=== PATIENT | female | born 1960 | race Caucasian/White ===

== ENCOUNTER 2021-07-06 13:20 | Outpatient (CLI) | payer BC | END 2021-07-06 23:59 | disposition critical access hospital (66) | LOC: EMS 13:20 | DX: R55 Syncope and collapse (principal); R41.0 Disorientation, unspecified; R45.1 Restlessness and agitation | CPT/HCPCS: A0425; A0427 ==

== ENCOUNTER 2021-07-06 14:09 | Emergency (ER) | payer BC ==
--- NOTE | 2021-07-06 14:04 | ED Physician Documentation ---
PD HPI SYNCOPE - Stated complaint Stated Complaint: SYNCOPE/CONFUSED - Chief complaint Chief Complaint: Neuro - History obtained from History obtained from: Patient - Additional information Additional information: 61-year-old woman presents by ambulance for the evaluation of syncope. She was in her usual state of health and passed out in the kitchen. No clear injury. She did not feel dizzy or presyncopal before it happened. She has right-sided anterior pleuritic chest pain that she noted on the ambulance on the way here. No shortness of breath, calf pain or pedal edema. No head injury. She returned from [place] by flight 2 days ago. No history of heart or lung problems except for asthma. Of note she has felt clumsy lately and has hit her head a couple of times and falls. Nothing she thought was serious. Review of Systems Constitutional: denies: Fever, Chills Eyes: reports: Reviewed and negative Ears: reports: Reviewed and negative Nose: reports: Reviewed and negative Cardiac: reports: Chest pain / pressure. denies: Palpitations Respiratory: denies: Dyspnea, Cough PD PAST MEDICAL HISTORY - Present Medications Home Medications: Ambulatory Orders Medication Instructions Recorded Confirmed Sertraline [Zoloft] 25 mg PO DAILY 07/06/21 07/06/21 lamoTRIgine [LaMICtal] 25 mg PO DAILY 07/06/21 07/06/21 - Allergies Allergies/Adverse Reactions: Allergies Allergy/AdvReac Type Severity Reaction Status Date / Time acetaminophen [From Percocet] AdvReac Unknown Verified 07/06/21 14:02 oxycodone [From Percocet] AdvReac Unknown Verified 07/06/21 14:02 PD ED PE NORMAL - Vitals Vital signs reviewed: Yes - General General: Alert and oriented X 3, Other (Win[place] with deep breathing, she points to the right anterior chest as the site of pain.) - HEENT HEENT: PERRL, EOMI - Neck Neck: Supple, no meningeal sign, No bony TTP - Cardiac Cardiac: RRR, No murmur - Respiratory Respiratory: No respiratory distress, Clear bilaterally - Abdomen Abdomen: Normal bowel sounds, Soft, Non tender - Back Back: No CVA TTP, No spinal TTP - Derm Derm: Normal color, Warm and dry - Extremities Extremities: No edema, No calf tenderness / cord - Neuro Neuro: Alert and oriented X 3, Normal speech Results - Vitals Vitals: Vital Signs - 24 hr 07/06/21 07/06/21 07/06/21 13:59 14:38 15:20 Temperature 37 C Heart Rate 82 80 Heart Rate [ 81 Sitting] Heart Rate [ 89 Standing] Heart Rate [ 80 Supine] Respiratory 20 20 Rate Blood Pressure 150/100 H 132/90 H Blood Pressure 137/111 H [Sitting] Blood Pressure 139/100 H [Standing] Blood Pressure 135/98 H [Supine] O2 Saturation 98 99 07/06/21 07/06/21 07/06/21 15:33 16:16 17:16 Temperature 36.5 C Heart Rate 71 79 83 Heart Rate [ Sitting] Heart Rate [ Standing] Heart Rate [ Supine] Respiratory 16 14 16 Rate Blood Pressure 139/68 H 152/100 H 199/86 H Blood Pressure [Sitting] Blood Pressure [Standing] Blood Pressure [Supine] O2 Saturation 99 96 100 07/06/21 07/06/21 07/06/21 17:40 19:09 19:22 Temperature Heart Rate 80 60 60 Heart Rate [ Sitting] Heart Rate [ Standing] Heart Rate [ Supine] Respiratory 16 18 Rate Blood Pressure 119/80 Blood Pressure [Sitting] Blood Pressure [Standing] Blood Pressure [Supine] O2 Saturation 95 94 96 07/06/21 07/06/21 07/06/21 20:11 20:44 21:12 Temperature Heart Rate 62 60 62 Heart Rate [ Sitting] Heart Rate [ Standing] Heart Rate [ Supine] Respiratory 18 14 Rate Blood Pressure 119/80 120/79 Blood Pressure [Sitting] Blood Pressure [Standing] Blood Pressure [Supine] O2 Saturation 97 98 97 Oxygen O2 Source Room air - EKG (time done) 1411 Rate: Rate (enter#) (81) Rhythm: NSR, LAE [place]: LAD Intervals: Normal [place] QRS: Normal Ischemia: Normal ST segments Computer interpretation: Agree with computer 1616 Rate: Rate (enter#) (78) Rhythm: NSR, LAE [place]: LAD Intervals: Normal [place] QRS: Normal Ischemia: Normal ST segments Compare to prior EKG: Unchanged from prior EKG (No change from first EKG) Computer interpretation: Agree with computer - Labs Labs: Laboratory Tests 07/06/21 07/06/21 07/06/21 14:13 14:13 14:13 WBC 8.0 RBC 4.35 Hgb 14.4 Hct 43.0 MCV 98.9 MCH 33.1 H MCHC 33.5 RDW 12.6 Plt Count 294 MPV 8.6 Neut # (Auto) 6.3 Lymph # (Auto) 1.0 L [place] # (Auto) 0.4 Eos # (Auto) 0.1 Baso # (Auto) 0.0 Absolute Nucleated RBC 0.00 Nucleated RBC % 0.0 Sodium 138 Potassium 4.0 Chloride 102 Carbon Dioxide 24 Anion Gap 12.0 BUN 19 Creatinine 0.7 Estimated GFR (MDRD) 85 L Glucose 92 Calcium 9.6 Total Bilirubin 0.5 AST 22 ALT 19 Alkaline Phosphatase 74 Troponin I High Sens 81.7 H* Total Protein 7.2 Albumin 4.3 Globulin 2.9 Albumin/Globulin Ratio 1.5 SARS-CoV-2 (PCR) 07/06/21 07/06/21 07/06/21 15:53 17:43 19:07 WBC RBC Hgb Hct MCV MCH MCHC RDW Plt Count MPV Neut # (Auto) Lymph # (Auto) [place] # (Auto) Eos # (Auto) Baso # (Auto) Absolute Nucleated RBC Nucleated RBC % Sodium Potassium Chloride Carbon Dioxide Anion Gap BUN Creatinine Estimated GFR (MDRD) Glucose Calcium Total Bilirubin AST ALT Alkaline Phosphatase Troponin I High Sens 249.5 H* 369.8 H* Total Protein Albumin Globulin Albumin/Globulin Ratio SARS-CoV-2 (PCR) NOT DETECTED - Rads (name of study) CT angiography of the test demonstrates hiatal hernia without acute abnormality. No PE. Radiology: EMP read contemporaneously CT angiography of the head is unremarkable Radiology: EMP read contemporaneously PD MEDICAL DECISION MAKING - ED course ED course: 61-year-old woman presents with syncope. There was no premonition. No injury. When she awoke she had pleuritic right-sided chest pain and was brought in for evaluation. Nothing else in the history or physical to suggest PE except for recent travel but given the syncope she was felt to be at high risk CT angiography of the chest was done. This was negative and her EKG was nonischemic. Subsequently her initial troponin was about 80. This was repeated and over the course of just an hour and a half or so it had tripled to 249. She had more of a headache, and given the concerns for headache and subarachnoid hemorrhage versus head injury CT angiography of the head was done prior to the initiation of anticoagulation and this was also negative. Given the rapidly rising troponin associated with syncope and chest pain she will need cardiology evaluation. After discussion with the patient and her who is at the bedside, [facility] was initially called for potential transfer at 5:13 PM. S/O to Dr Roman at shift change pending call back from [facility] - Critical Care Time(min): 35 Time Includes: Direct patient care, Review records, Reassess patient, Document care, Coordinate care, Medical consult, Family consult for tx dec Data interpretation: Labs, Pulse ox Procedures excluded from critical care time: EKG Departure - Departure Disposition: 02 Transfer Acute Care Hosp Clinical Impression: NSTEMI (non-ST elevated myocardial infarction) Syncope Qualifiers: Syncope type: unspecified Qualified Code(s): R55 - Syncope and collapse Headache Qualifiers: Headache type: unspecified Headache chronicity pattern: acute headache Intractability: not intractable Qualified Code(s): R51.9 - Headache, unspecified Condition: Serious Discharge Date/Time: 07/06/21 21:14
[2021-07-06 14:18] LABS: BASOPHILS % (AUTO) 0.5 %; EOSINOPHILS # (AUTO) 0.1 10^3/uL (0.0-0.7); EOSINOPHILS % (AUTO) 1.5 %; HGB - HEMOGLOBIN 14.4 g/dL (12.0-16.0); LYMPHOCYTES % (AUTO) 12.4 %; MEAN CORPUSCULAR HEMOGLOBIN 33.1 pg (27.0-31.0); MEAN CORPUSCULAR HGB CONC 33.5 g/dL (32.0-36.0); MEAN CORPUSCULAR VOLUME 98.9 fL (81.0-99.0); MEAN PLATELET VOLUME 8.6 fL (7.9-10.8); MONOCYTES # (AUTO) 0.4 10^3/uL (0.0-1.0); MONOCYTES % (AUTO) 5.5 %; NEUTROPHILS # (AUTO) 6.3 10^3/uL (1.5-6.6); NEUTROPHILS % (AUTO) 79.3 %; PLT - PLATELET COUNT 294 10^3/uL (130-450); RED BLOOD COUNT 4.35 10^6/uL (4.20-5.40); RED CELL DISTRIBUTION WIDTH 12.6 % (12.0-15.0)
[2021-07-06 14:34] LABS: ALBUMIN 4.3 g/dL (3.2-5.5); ALBUMIN/GLOBULIN RATIO 1.5 (1.0-2.2); BILIRUBIN,TOTAL 0.5 mg/dL (0.2-1.0); CALCIUM 9.6 mg/dL (8.5-10.3); CREATININE 0.7 mg/dL (0.4-1.0); TOTAL PROTEIN 7.2 g/dL (6.7-8.2)
[2021-07-06] MEDS ORDERED: IOPAMIDOL-300 100 ML VIAL ONE ×2 (14:37→16:25)
[2021-07-06] MEDS ORDERED: ONDANSETRON 4 MG/2 ML VIAL IVP STA (15:23)
[2021-07-06] MEDS ORDERED: MORPHINE 2 MG/ML CARPUJECT IVP STA ×2 (16:01→20:12)
--- NOTE | 2021-07-06 16:13 | CT Report ---
PROCEDURE: ANGIO CHEST W/WO INDICATIONS: Chest pain, syncope, pe protocol CONTRAST: IV CONTRAST: Isovue 300 ml: 80 PO CONTRAST: *NO PO CONTRAST TECHNIQUE: After the administration of intravenous contrast, 2 mm axial images were acquired from the pulmonary apices to the posterior costophrenic angles during the arterial phase. In addition, 1 mm lung kernel and 5 mm soft tissue kernel reconstructions were performed. 3-dimensional coronal oblique maximum int ensity projection (MIP) reformats, 8 mm axial MIP, and 5 mm coronal and sagittal MPR reformats were t hen performed through the thorax. For radiation dose reduction, the following was used: automated exp osure control, adjustment of mA and/or kV according to patient size. COMPARISON: None FINDINGS: Image quality: Excellent. Pulmonary arteries: Pulmonary arteries are normal in size, and demonstrate no intraluminal filling d efects to suggest central pulmonary embolism. Lungs and pleura: Lungs are clear. Fat-containing right posterior hemidiaphragmatic hernia. No pleu ral effusions or pneumothorax. Central and peripheral airways are patent. Mediastinum: Heart size is normal, without pericardial effusion. No mediastinal or hilar adenopathy . Thoracic aorta is normal in caliber and enhancement. Esophagus is normal in caliber. Moderate hia patrick hernia. Bones and chest wall: No suspicious bony lesions. Ribs and thoracic spine appear intact throughout. No axillary or supraclavicular adenopathy. The thyroid is normal in size and there are no incident al findings. Abdomen: Visualized upper abdominal solid organs appear normal in the early arterial phase of enhanc ement. IMPRESSION: 1. No acute process. No pulmonary embolus. 2. Hiatal hernia. Reviewed by: Albert Hernández MD on 07/06/2021 4:12 PM PDT Approved by: Albert Hernández MD on 07/06/2021 4:12 PM PDT Station ID: [id number]
[2021-07-06] MEDS ORDERED: SODIUM CHLORIDE 0.9% 1,000 ML IV STA (16:41)
--- NOTE | 2021-07-06 17:01 | CT Report ---
PROCEDURE: ANGIO HEAD W/WO INDICATIONS: headache, syncope CONTRAST: IV CONTRAST: Isovue 300 ml: 80 PO CONTRAST: *NO PO CONTRAST TECHNIQUE: Precontrast 4.5 mm thick angled axial sections acquired from the foramen magnum to the vertex. Afte r the administration of intravenous contrast, 1 mm thick sections acquired through the [place] of [place] is. Postcontrast 4.5 mm thick sections then re-acquired from the foramen magnum to the vertex. 3-di mensional [id number]-oidamqkkwq (MIP) and/or volume rendering reformats were acquired of the c entral intracranial vasculature. For radiation dose reduction, the following was used: automated ex posure control, adjustment of mA and/or kV according to patient size. COMPARISON: None FINDINGS: Image quality: Excellent. Anterior circulation: Intracranial internal carotid arteries are normal in size and flow. The flow within the paired anterior cerebral arteries is normal and symmetric. The flow within the middle cer ebral arteries is normal and symmetric. The anterior communicating artery is seen. No aneurysms are seen. Posterior circulation: Visualized portions of the vertebral arteries demonstrate normal caliber, and join to form a normal appearing basilar artery. Flow within the posterior cerebral arteries is norm al and symmetric. No aneurysms are seen. CSF spaces: Ventricles are normal in size and shape. Basal cisterns are patent. No extra-axial flu id collections. Brain: Previously administered intravenous contrast is present within the intravascular space, which limits sensitivity for subarachnoid hemorrhage. Within this limitation, there does not appear to be a ny intracranial hemorrhage Skull and face: Calvarium and facial bones appear intact, without suspicious lesions. Sinuses: Visualized sinuses and mastoids are clear. IMPRESSION: No evidence of acute intracranial hemorrhage or other acute intracranial abnormality. No imaging evidence for significant stenosis or occlusion of the major intracranial arterial circulat ion. Reviewed by: Aquilino Ramirez MD on 07/06/2021 5:00 PM PDT Approved by: Aquilino Ramirez MD on 07/06/2021 5:00 PM PDT Station ID: [id number]
[2021-07-06] MEDS ORDERED: METOPROLOL TARTRATE 50 MG TABLET PO STA (17:04)
[2021-07-06] MEDS ORDERED: ASPIRIN CHEW 81 MG TABLET PO STA (17:04)
[2021-07-06] MEDS ORDERED: IOPAMIDOL-300 100 ML VIAL IVP ONE (18:36)
[2021-07-06] MEDS ORDERED: HEPARIN 25000UNITS/500ML (D5W) 25,000 UNIT/500 ML BAG IV SCH (19:00)
--- NOTE | 2021-07-06 20:03 | ED Physician Documentation ---
ED Addendum - Addendum Addendum: 07/06/21 20:02 Patient was signed out to me by Dr. Mercer awaiting callback from cardiology at [facility] in [place]. I spoke with Dr. Sylvester, cardiology who recommends admission to the hospitalist service and they can consult cardiology in the morning. Patient is maintained on a heparin drip in the emergency department. Her troponins are still uptrending, but she is asymptomatic. 07/06/21 20:20 Discussed the case with Dr. Roche, hospitalist at [facility] in [place] who graciously accepts in transfer. Patient will be transferred for further care. COBRA forms completed. This document was made in part using voice recognition software. While efforts are made to proofread this document, sound alike and grammatical errors may occur. Departure - Departure Disposition: 02 Transfer Acute Care Hosp Clinical Impression: NSTEMI (non-ST elevated myocardial infarction) Syncope Qualifiers: Syncope type: unspecified Qualified Code(s): R55 - Syncope and collapse Headache Qualifiers: Headache type: unspecified Headache chronicity pattern: acute headache Intractability: not intractable Qualified Code(s): R51.9 - Headache, unspecified Condition: Serious
[2021-07-06 21:12] VITALS: BP 120/79
== END 2021-07-06 21:14 | disposition short-term general hospital (02) ==
LOC: ED 14:09
DX: I21.4 Non-ST elevation (NSTEMI) myocardial infarction (principal); R55 Syncope and collapse; R51.9 Headache, unspecified; Z20.822 Contact with and (suspected) exposure to COVID-19
CPT/HCPCS: 36415; 70496; 71275; 80053; 84484; 85025; 87635; 93005; 96374; 96375; 96376; 99285; 99291; A9270; Q9967; 85730

== ENCOUNTER 2021-07-06 21:19 | Outpatient (CLI) | payer BC | END 2021-07-06 23:59 | disposition short-term general hospital (02) | LOC: EMS 21:19 | PROVIDERS: ATTEND Emergency Medicine | DX: I21.4 Non-ST elevation (NSTEMI) myocardial infarction (principal) | CPT/HCPCS: A0425; A0426 ==